=== PATIENT | female | born 1940 | race Caucasian/White ===

== ENCOUNTER 2024-01-14 20:41 | Inpatient (IN) ==
[2024-01-14 21:04] LABS: Hematocrit 33.9 % (35-45); Mean Corpuscular Hemoglobin 28.7 pg (27-33); Mean Corpuscular Hgb Conc 32.4 g/dL (31-36); Mean Corpuscular Volume 88.6 fL (80-97); Mean Platelet Volume 7.9 fL (7.5-11.2); Platelet Count 275 10^3/uL (150-450); Red Blood Count 3.83 10^6/uL (3.63-4.92); Red Cell Distribution Width 14.7 % (12-17)
[2024-01-14 21:13] LABS: INR 1.07 (0.83-1.13)
[2024-01-14] MEDS: ACETAMINOPHEN IV ONE (21:24)
[2024-01-14] MEDS: Ondansetron 4 mg VIAL 2 MG/ML 2 ml VIAL IV ONE (21:24)
[2024-01-14 21:39] LABS: Albumin 3.9 g/dL (3.2-5.2); Albumin/Globulin Ratio 1.7 (1-3); Calcium 8.9 mg/dL (8.6-10.3); Creatinine, Serum 0.96 mg/dL (0.51-0.95); Globulin 2.3 g/dL (2-4); Total Bilirubin 0.5 mg/dL (0.2-1.0); Total Protein 6.2 g/dL (6.4-8.9)
[2024-01-14] MEDS: Lactated Ringers 1000 ml BAG 1,000 ML IV ONE (21:45)
[2024-01-14 21:54] LABS: C Reactive Protein 4.52 mg/L (<8.01)
[2024-01-14] MEDS: fentaNYL 100 mcg/2 ml 50 MCG/ML VIAL IV SLOW PU ONE (22:33)
[2024-01-14 22:47] LABS: High Sensitivity Troponin 1 Hr 273 pg/mL (<15)
[2024-01-14] MEDS: Iodixanol (CONTRAST) 320 MG/ML 100 ML SDV IV ONE (22:55)
[2024-01-14] MEDS: Heparin DRIP 25,000 UNITS BAG 25,000 UNITS/250 ML BAG IV SCH (23:18)
[2024-01-14] MEDS: Heparin 5000 UNITS/ML 1 mL VIAL IV SCH (23:19)
[2024-01-14 23:39] LABS: Activated Partial Thrombo Time 28.4 seconds (26.0-38.0)
[2024-01-14 23:48] LABS: ABS Basophils 0.2 10^3/uL (0.0-0.1); ABS Eosinophils 0.1 10^3/uL (0.0-0.5); ABS Lymphocytes 1.8 10^3/uL (1.0-4.8); ABS Monocytes 0.3 10^3/uL (0.0-0.9); ABS Neutrophils 6.6 10^3/uL (1.5-7.6); ABS Nucleated RBC 0.01 10^3/ul; Anisocytosis 1+; Eosinophil % 1.2 %; Lymphocyte % 19.7 %; Nucleated Red Blood Cells % 0.1 %/100WBC (0.0-0.8)
[2024-01-14] MEDS ORDERED: Ondansetron 4 mg VIAL 2 MG/ML 2 ml VIAL IV PRN (23:53)
[2024-01-15 06:28] LABS: ABS Lymphocytes 1.7 10^3/uL (1.0-4.8); ABS Monocytes 0.4 10^3/uL (0.0-0.9); Eosinophil % 0.7 %; Hematocrit 30.9 % (35-45); Hemoglobin 10.4 g/dL (11.5-14.3); Lymphocyte % 27.4 %; Mean Corpuscular Hemoglobin 29.9 pg (27-33); Mean Corpuscular Hgb Conc 33.7 g/dL (31-36); Mean Corpuscular Volume 88.6 fL (80-97); Mean Platelet Volume 7.9 fL (7.5-11.2); Nucleated Red Blood Cells % 0.1 %/100WBC (0.0-0.8); Platelet Count 219 10^3/uL (150-450); Red Blood Count 3.48 10^6/uL (3.63-4.92); Red Cell Distribution Width 14.6 % (12-17); White Blood Count 6.2 10^3/uL (3.8-11.8)
[2024-01-15 08:05] LABS: Calcium 8.2 mg/dL (8.6-10.3); Creatinine, Serum 0.96 mg/dL (0.51-0.95); Magnesium 1.4 mg/dL (1.9-2.7); Potassium 3.8 mmol/L (3.5-5.0)
[2024-01-15 17:36] LABS: High Sensitivity Troponin 3 Hr 483 pg/mL (<15)
[2024-01-15] MEDS: Magnesium Sulf 4 GM/100 ML IV 4,000 MG/100 ML BAG IVPB ONE (19:41)
[2024-01-16] MEDS: Sulfur Hexaflouride MICROSPHR 25 MG VIAL IV ONE (08:37)
[2024-01-16 12:28] LABS: Calcium 8.5 mg/dL (8.6-10.3); Creatinine, Serum 1.01 mg/dL (0.51-0.95); Magnesium 2.4 mg/dL (1.9-2.7); Potassium 4.1 mmol/L (3.5-5.0); eGFR CKD-EPI 54.6 (>60)
[2024-01-16] MEDS: Empagliflozin 25 MG TAB PO SCH (13:02)
[2024-01-16 14:05] LABS: Rapid COVID-19 Molecular Detected (Undetected)
[2024-01-17 06:18] LABS: ABS Eosinophils 0.4 10^3/uL (0.0-0.5); ABS Lymphocytes 1.6 10^3/uL (1.0-4.8); ABS Monocytes 0.4 10^3/uL (0.0-0.9); ABS Neutrophils 4.1 10^3/uL (1.5-7.6); Eosinophil % 5.5 %; Hematocrit 30.4 % (35-45); Hemoglobin 10.3 g/dL (11.5-14.3); Lymphocyte % 24.8 %; Mean Corpuscular Hgb Conc 33.8 g/dL (31-36); Mean Corpuscular Volume 88.8 fL (80-97); Mean Platelet Volume 7.9 fL (7.5-11.2); Nucleated Red Blood Cells % 0.1 %/100WBC (0.0-0.8); Platelet Count 227 10^3/uL (150-450); Red Blood Count 3.42 10^6/uL (3.63-4.92); Red Cell Distribution Width 14.7 % (12-17); White Blood Count 6.6 10^3/uL (3.8-11.8)
[2024-01-17 06:57] LABS: Calcium 8.7 mg/dL (8.6-10.3); Creatinine, Serum 1.02 mg/dL (0.51-0.95); HDL Cholesterol 32.6 mg/dL; Potassium 4.2 mmol/L (3.5-5.0); eGFR CKD-EPI 53.9 (>60)
[2024-01-17] MEDS ORDERED: Regadenoson 0.4 MG/5 ML SYRINGE ONE (13:18)
[2024-01-17] MEDS ORDERED: Aminophylline 25 MG/ML VIAL ONE (13:18)
[2024-01-18 09:39] VITALS: BP 112/81
== END 2024-01-18 12:35 | disposition home or self-care (01) | DRG 280 ==
LOC: ED 20:41 → EDHOLD 23:53 → MEDTELE 01-15 13:34
PROVIDERS: ADMIT Student in an Organized Health Care Education/Training Program; ATTEND Internal Medicine